=== PATIENT | female | born 1990 | race Caucasian/White ===

== ENCOUNTER 2019-07-25 13:44 | Outpatient (CLI) | payer OTHER ==
[2019-07-25] MEDS: TERBUTALINE 1 MG/ML INJ SC (18:17)
[2019-07-25] MEDS: LACTATED RINGER'S 1,000 ML IV (18:20)
== END 2019-07-25 19:55 | disposition home or self-care (01) ==
LOC: OBT 13:44 → L-D 13:44 → OBT 19:55
DX: O76 Abnormality in fetal heart rate and rhythm complicating labor and delivery (principal); Z3A.35 35 weeks gestation of pregnancy
CPT/HCPCS: 36415; 76818; 96360